=== PATIENT | female | born 1975 | race Caucasian/White ===

== ENCOUNTER 2022-01-20 16:08 | Emergency (ER) | payer OTHER, SELFPAY ==
--- NOTE | ~2022-01-20 | XR_ITS ---
EXAMINATION: XR chest 1V portable DATE: 01/20/2022 18:16 INDICATION: COVID presenting with shortness of breath, fever and hypertension. TECHNIQUE: frontal view of the chest was obtained. COMPARISON: Chest radiograph dated 01/23/19 FINDINGS: The lungs are clear with no focal airspace opacities, pulmonary edema, pleural effusion or pneumothor ax. The cardiomediastinal silhouette is normal. Visualized bones and soft tissues are unremarkable. IMPRESSION: 1. No acute cardiopulmonary disease. Reviewed, dictated and finalized at location A.
[2022-01-20 16:12] VITALS: BP 193/141; PULSE 118; RESP 20; TEMP 37.9; O2SAT 97
[2022-01-20 17:55] LABS: Influenza A QL RT-PCR Negative (Negative); Influenza B QL RT-PCR Negative (Negative); SARS-CoV-2 RNA PCR Positive
--- NOTE | 2022-01-20 18:00 | ECG_ITS ---
Measurements Intervals [place] Rate: 101 P: 56 IL: 146 QRS: 22 QRSD: 75 T: 31 QT: 351 QTc: 456 Interpretive Statements SINUS TACHYCARDIA LEFT ATRIAL ENLARGEMENT DELAYED PRECORDIAL R/S TRANSITION BORDERLINE ECG COMPARED TO ECG 01/23/2019 17:36:57 SINUS TACHYCARDIA NOW PRESENT Electronically Signed On 01-20-2022 20:37:59 CDT by Jono Ramirez D.O.
--- NOTE | 2022-01-20 18:09 | ED.GENADULT ---
HPI - General Adult General Chief complaint: Shortness of Breath/Dyspnea Stated complaint: sob Time Seen by Provider: 01/20/22 17:57 Source: patient Mode of arrival: ambulatory Limitations: no limitations History of Present Illness HPI narrative: Patient is a 46 y/o female who presents to the ED with c/o cough and SOB. Patient reports she began feeling unwell yesterday with cough, fever, muscle aches, headache, fatigue, mild shortness of breath. She denies any chest pain, abdominal pain, nausea, vomiting. She has not taken anything for symptoms. Symptoms persisted today which prompted her presentation. Patient is not vaccinated for COVID or influenza. No recent sick contacts that she is aware of. Related Data Allergies Allergy/AdvReac Type Severity Reaction Status Date / Time No Known Allergies Allergy Unverified 01/23/19 17:34 Review of Systems Review of Systems: CONSTITUTIONAL: Reports fatigue, fever, chills, and sweats. ENT: Reports rhinorrhea, congestion. CARDIOVASCULAR: Denies chest pain. RESPIRATORY: Reports cough and dyspnea. GASTROINTESTINAL: Denies abdominal pain, nausea, vomiting. MUSCULOSKELETAL: Reports myalgias. NEUROLOGIC: Reports headache. All systems reviewed & are unremarkable except as noted in HPI and below PMFSH Past Medical History Medical History ADHD Encounter for insertion of mirena IUD 05/2013 insertion 10/14/14 removal Encounter for insertion of ParaGard IUD 11/11/14 Surgical History Surgical History (Updated 01/20/22 @ 18:12 by Becky Richey PA-C) History of endometrial ablation History of hernia repair Family History Family History (Updated 06/14/21 @ 13:14 by Eunice Forde) Mother Diabetes mellitus Father Diabetes mellitus Grandparent Diabetes mellitus maternal grandmother Breast cancer maternal grandmother Social History Social History (Updated 01/20/22 @ 18:12 by Becky Richey PA-C) Smoking status: Current every day smoker Exam Narrative: GENERAL: Mildly ill appearing, well-nourished, non-toxic, in no acute distress. HEAD: Normocephalic, atraumatic. EYES: PERRL/EOMI, conjunctivae clear bilaterally. NOSE: Normal, no drainage. THROAT: Pharynx clear, no exudate. MMs moist. NECK: Supple. No adenopathy, no masses. RESPIRATORY: Airway patent, respirations nonlabored. No tachypnea. Clear to auscultation bilaterally, no rales, rhonchi, wheezing. CARDIOVASCULAR: Tachycardic with regular rhythm without murmurs, rubs, or gallops. Radial pulses 2+ and equal bilaterally. ABDOMINAL: Soft, nontender, nondistended, no hepatosplenomegaly. Normoactive BS. MUSCULOSKELETAL: Moves all extremities. Strength/ROM intact without gross deformities or TTP. No edema. SKIN: Warm, dry, normal color. No rashes. NEURO: A&O X3. Speech clear. Cranial nerves II-XII grossly intact. Steady gait. No ataxic movements. PSYCHIATRIC: Appropriate mood and affect. Normal interaction. Course Vital Signs Vital signs: Vital Signs Temperature 100.2 F H 01/20/22 16:12 Pulse Rate 118 H 01/20/22 16:12 Respiratory Rate 20 01/20/22 16:12 Blood Pressure 193/141 H 01/20/22 16:12 Pulse Oximetry 97 01/20/22 16:12 Temperature 99.0 F 01/20/22 18:22 Pulse Rate 110 H 01/20/22 18:22 Respiratory Rate 20 01/20/22 18:22 Blood Pressure 150/98 H 01/20/22 18:22 Pulse Oximetry 97 01/20/22 18:22 Oxygen Delivery Room Air 01/20/22 18:34 Medical Decision Making MDM Narrative Medical decision making narrative: Patient presented to ED with report of shortness of breath, cough, fever, muscle aches. Borderline febrile upon arrival, tachycardic. Work-up significant for positive COVID testing, negative influenza. CBC and CMP unremarkable. Chest x-ray without acute findings. EKG without concerning ST changes. D-dimer negative. Patient came out to nurses station prior to my reevaluati
[2022-01-20 18:22] VITALS: BP 150/98; PULSE 110; RESP 20; TEMP 37.2; O2SAT 97
[2022-01-20] MEDS: ACETAMINOPHEN 500 MG TABLET 1000 MG PO (18:24)
[2022-01-20] MEDS: KETOROLAC (*BKC) 60 MG/2 ML VIAL IM (18:24)
[2022-01-20 18:44] LABS: Basophils Percent Auto 0.5 % (0.2-1.2); Eosinophils Absolute Auto 0.1 K/mm3 (0-0.3); Eosinophils Percent Auto 1.1 % (0-4.4); Hematocrit 38.1 % (37.0-47.0); Hemoglobin 12.8 g/dL (12.0-15.0); Immature Granulocyte Absolute 0.07 K/mm3 (0.00-0.031); Immature Granulocyte Percent A 0.8 % (0-0.5); Lymphocytes Absolute Auto 1.14 K/mm3 (0.9-3.2); Lymphocytes Percent Auto 13.1 % (18.3-44.2); Mean Corpuscular HGB Conc 33.6 g/dl (32-36); Mean Corpuscular Hemoglobin 31.8 pg (26-34); Mean Corpuscular Volume 94.5 fl (80-100); Mean Platelet Volume 10.5 fl (7.4-10.4); Monocytes Absolute Auto 0.8 K/mm3 (0.1-0.6); Monocytes Percent Auto 9.4 % (2.6-8.5); Neutrophils Absolute Auto 6.5 K/mm3 (1.3-6.7); Neutrophils Percent Auto 75.1 % (45.5-73.1); Platelet Count Result 247 k/mm3 (150-375); Red Blood Count 4.03 M/mm3 (4.2-5.4); Red Cell Distribution Width 12.7 % (11.5-14.5); White Blood Count 8.7 K/mm3 (4.5-10.0)
[2022-01-20 18:50] LABS: Alanine Aminotransferase 32 U/L (6-35); Albumin Level 4.2 g/dL (3.5-5.1); Alkaline Phosphatase 86 U/L (38-126); Anion Gap 9 mmol/L (8-16); Aspartate Amino Transferase 34 U/L (14-36); Bilirubin,Total 0.3 mg/dL (0.2-1.3); Blood Urea Nitrogen 10 mg/dL (7-17); Calcium 8.1 mg/dL (8.4-10.2); Carbon Dioxide 27 mmol/L (22-30); Chloride 98 mmol/L (98-107); Estimated CRCL calculation 72 ml/min; Estimated Glomerular Filt Rate > 60; Glucose 103 mg/dL (65-110); Potassium 3.8 mmol/L (3.4-5.0); Sodium 134 mmol/L (137-145)
--- NOTE | 2022-01-20 19:05 | PC.NURSE ---
Patient up to nurses station desk stating I need to leave. My is in the care waiting for me and says I need to leave. Patient asked to return to her room and that the provider would be notified. JOHN Pena made aware and at bedside to speak with patient.
[2022-01-20 19:07] LABS: D Dimer 0.38 ug/mL (<0.48)
--- NOTE | 2022-01-20 19:17 | PC.NURSE ---
ED charge nurse notified that patient left AMA. Form completed.
== END 2022-01-20 19:20 | disposition home or self-care (01) ==
LOC: ANHED 19:41
PROVIDERS: Emergency Medicine; Physician Assistant; Emergency Provider Emergency Medicine
DX: U07.1 COVID-19 (principal); R06.02 Shortness of breath; Z28.310 Unvaccinated for COVID-19; F17.200 Nicotine dependence, unspecified, uncomplicated
CPT/HCPCS: 36415; 71045; 80053; 85025; 85380; 87502; 93005; 96372; 99283; A9270; C9803; J1885; U0003; U0005

== ENCOUNTER 2022-07-04 21:39 | Emergency (ER) | payer OTHER, SELFPAY ==
[2022-07-04 21:46] VITALS: BP 201/116; PULSE 129; RESP 20; TEMP 37.3; O2SAT 99
--- NOTE | 2022-07-04 21:49 | ECG_ITS ---
Measurements Intervals [place] Rate: 118 P: 63 IN: 136 QRS: 18 QRSD: 71 T: 39 QT: 314 QTc: 441 Interpretive Statements SINUS TACHYCARDIA POSSIBLE LEFT ATRIAL ENLARGEMENT [-0.1mV P WAVE IN V1/V2] NONSPECIFIC T-WAVE ABNORMALITY ABNORMAL ECG COMPARED TO ECG 01/20/2022 18:23:19 T-WAVE ABNORMALITY NOW PRESENT Electronically Signed On 07-05-2022 13:39:46 ICT BUSINESS DEVELOPMENT MANAGER by Emmanuel Richardson M.D.
[2022-07-04 22:06] LABS: Basophils Absolute Auto 0.1 K/mm3 (0.0-0.1); Basophils Percent Auto 0.4 % (0.2-1.2); Eosinophils Absolute Auto 0.1 K/mm3 (0-0.3); Eosinophils Percent Auto 0.4 % (0-4.4); Hematocrit 40.9 % (37.0-47.0); Hemoglobin 13.7 g/dL (12.0-15.0); Immature Granulocyte Absolute 0.07 K/mm3 (0.00-0.031); Immature Granulocyte Percent A 0.4 % (0-0.5); Lymphocytes Absolute Auto 1.31 K/mm3 (0.9-3.2); Lymphocytes Percent Auto 8.3 % (18.3-44.2); Mean Corpuscular HGB Conc 33.5 g/dl (32-36); Mean Corpuscular Volume 95.6 fl (80-100); Mean Platelet Volume 10.3 fl (7.4-10.4); Monocytes Absolute Auto 0.6 K/mm3 (0.1-0.6); Monocytes Percent Auto 3.7 % (2.6-8.5); Neutrophils Absolute Auto 13.7 K/mm3 (1.3-6.7); Neutrophils Percent Auto 86.8 % (45.5-73.1); Platelet Count Result 263 k/mm3 (150-375); Red Blood Count 4.28 M/mm3 (4.2-5.4); Red Cell Distribution Width 13.3 % (11.5-14.5); White Blood Count 15.8 K/mm3 (4.5-10.0)
[2022-07-04 22:16] LABS: Alanine Aminotransferase 25 U/L (6-35); Albumin Level 4.6 g/dL (3.5-5.1); Alkaline Phosphatase 88 U/L (38-126); Anion Gap 6 mmol/L (8-16); Aspartate Amino Transferase 24 U/L (14-36); Blood Urea Nitrogen 13 mg/dL (7-17); Calcium 8.7 mg/dL (8.4-10.2); Carbon Dioxide 27 mmol/L (22-30); Chloride 103 mmol/L (98-107); Estimated CRCL calculation 64 ml/min; Estimated Glomerular Filt Rate > 60; Glucose 106 mg/dL (65-110); Lipase 37 U/L (23-300); Potassium 3.5 mmol/L (3.4-5.0); Sodium 136 mmol/L (137-145)
--- NOTE | 2022-07-04 22:17 | PC.NURSE ---
1st encounter, pt comes to room 7 from triage, pt has multiple complaints tonight, pt c/o toothache that she is currently on antibiotics for, nausea x3 days, headaches x3 nights, bodyaches, pt states she hasn't been able to eat or drink for about 2.5 days. pt states she went to urgent care in [place] prior to coming here and they sent her here for high blood pressure. pt denies any chest pain or JESSICA, airway patent, breathing even/unlabored, gait steady. pt placed on bedside monitor.
[2022-07-04 22:27] VITALS: BP 186/129; PULSE 125; RESP 26; O2SAT 100
[2022-07-04 22:28] LABS: Troponin I < 0.012 ng/mL (0.000-0.034)
[2022-07-04] MEDS: SODIUM CHLORIDE 0.9% IV 1,000 ML 999 ML IV CONT (23:06)
[2022-07-04 23:33] VITALS: BP 171/104; PULSE 112; RESP 28; O2SAT 99
[2022-07-04 23:46] LABS: Appearance Urine Clear (Clear); Bilirubin Urine Negative (Negative); Blood Urine 2+ (Negative); Color Urine Yellow (Yellow); Glucose Urine UA Negative (Negative); Ketones Urine Negative (Negative); Leukocyte Esterase Ur Negative LEU/UL (Negative); Nitrate Urine Negative (Negative); Protein Urine 1+ mg/dL (Negative); Specific Grav Ur 1.025 (1.001-1.035); Urobilinogen Urine 0.2 mg/dL (<2.0)
[2022-07-04 23:52] LABS: Mucus Urine Few /lpf; Squamous Epithelial Cell Urine Few /hpf (Few); WBC Urine 21-30 /hpf
[2022-07-04 23:54] LABS: Add Urine Microscopic? YES
[2022-07-04 23:55] LABS: Lactic Acid Reflex 0.9 mmol/L (0.7-2.0)
[2022-07-04 23:58] LABS: CRP 5.6 mg/dL (<1.0)
--- NOTE | 2022-07-05 00:11 | ED.GENADULT ---
HPI - General Adult General Chief complaint: Recheck/Abnormal Lab/Rx Stated complaint: body aches, headache, high BP Time Seen by Provider: 07/04/22 22:33 History of Present Illness HPI narrative: Patient is a 47-year-old female who presents the emergency department with chief complaint of hypertension and dental infection. The patient reports that she was seen in urgent care after she had dental pain and was found to be hypertensive. Patient reports that they sent her to the emergency department for evaluation. Patient reports she is normally fairly tachycardic and reports that she takes both Adderall and clonazepam. Related Data Home Medications Medication Instructions Recorded Confirmed clonazepam 1 mg tablet 1 mg PO TID 07/04/22 dextroamphetamine-amphetamine 20 20 mg PO TID 07/04/22 mg tablet (Adderall) Allergies Allergy/AdvReac Type Severity Reaction Status Date / Time No Known Allergies Allergy Verified 07/04/22 21:53 Review of Systems Review of Systems: A 10 system review of systems was completed on the patient and is negative except for what is stated in the HPI. Nursing and ancillary documentation was reviewed. [facility]LY [facility] Past Medical History Medical History ADHD Encounter for IUD insertion 05/14/13 Mirena insertion 11/11/14 Paragard insertion Encounter for IUD removal 10/14/14 Mirena removal Screening for breast cancer Vaginal delivery 04/11/96 05/25/13 Vaginal discharge Surgical History Surgical History History of endometrial ablation History of hernia repair Family History Family History Mother Diabetes mellitus Father Diabetes mellitus Grandparent Diabetes mellitus maternal grandmother Breast cancer maternal grandmother Social History Social History Smoking status: Current every day smoker Alcohol intake: former Substance use: never Living arrangements: other Additional living arrangements comments: child Occupation/Education: unemployed Gender identity (if verbalized by the patient): Female Sexual Orientation (if Verbalized by the Patient): Straight or Heterosexual Exam Narrative: GENERAL: Well-appearing, well-nourished, and in no acute distress. HEAD: Normocephalic, atraumatic. EYES: PERRLA and EOMI. ENT: Nares clear, no rhinorrhea or epistaxis. Mucous membranes moist. Poor dentition multiple dental caries and dental abscess NECK: Supple. CHEST: Clear to auscultation. No respiratory distress. HEART: Regular rate and rhythm. No murmur heard. Normal peripheral pulses. ABDOMEN: Soft, nontender, nondistended, normal active bowel sounds. EXTREMITIES: Normal range of motion. No edema. SKIN: Warm, dry, no rash. NEURO: No focal deficits. Alert and oriented x3. PSYCH: Normal mood and affect. Course Vital Signs Vital signs: Vital Signs Temperature 37.3 C 07/04/22 21:46 Pulse Rate 129 H 07/04/22 21:46 Respiratory Rate 20 07/04/22 21:46 Blood Pressure 201/116 H 07/04/22 21:46 Pulse Oximetry 99 07/04/22 21:46 Oxygen Delivery Room Air 07/04/22 21:46 Temperature 37.3 C 07/04/22 21:46 Pulse Rate 112 H 07/04/22 23:33 Respiratory Rate 28 H 07/04/22 23:33 Blood Pressure 171/104 H 07/04/22 23:33 Pulse Oximetry 99 07/04/22 23:33 Oxygen Delivery Room Air 07/04/22 21:46 Medical Decision Making MDM Narrative Medical decision making narrative: The patient was tachycardic and hypertensive upon initial arrival. The patient's blood pressure came down spontaneously heart rate has come down as well. Urinalysis showed evidence of UTI white blood cell count is mildly elevated at 15.8 CRP is elevated at 5 lactate is normal. The patient is currently on Augmentin pe
[2022-07-05 00:19] LABS: Influenza A QL RT-PCR Negative (Negative); Influenza B QL RT-PCR Negative (Negative); SARS-CoV-2 RNA PCR Negative
[2022-07-05 00:21] LABS: Procalcitonin 0.6 ng/mL
[2022-07-05 00:53] VITALS: BP 149/100; PULSE 112; RESP 18; O2SAT 99
== END 2022-07-05 00:54 | disposition home or self-care (01) ==
PROVIDERS: Emergency Medicine; Emergency Provider Emergency Medicine
DX: I10 Essential (primary) hypertension (principal); K04.7 Periapical abscess without sinus; N39.0 Urinary tract infection, site not specified; Z20.822 Contact with and (suspected) exposure to COVID-19; F90.9 Attention-deficit hyperactivity disorder, unspecified type; F17.200 Nicotine dependence, unspecified, uncomplicated; R00.0 Tachycardia, unspecified; R94.31 Abnormal electrocardiogram [ECG] [EKG]
CPT/HCPCS: 36415; 80053; 81001; 83605; 83690; 84145; 84484; 85025; 86140; 87040; 87086; 87636; 93005; 96361; 96365; 99284; J0131; J7030

== ENCOUNTER 2023-04-27 01:10 | Emergency (ER) | payer OTHER, SELFPAY | END 2023-04-28 02:25 | disposition left against medical advice (07) | PROVIDERS: PCP Family Medicine | DX: Z53.21 Procedure and treatment not carried out due to patient leaving prior to being seen by health care provider (principal) | CPT/HCPCS: 99199 ==

== ENCOUNTER 2023-07-30 00:34 | Emergency (ER) | payer OTHER, SELFPAY ==
[2023-07-30 00:36] VITALS: BP 204/125; PULSE 111; RESP 18; TEMP 36.1; O2SAT 99
--- NOTE | 2023-07-30 00:41 | ECG_ITS ---
Measurements Intervals [place] Rate: 87 P: 23 DE: 134 QRS: 11 QRSD: 67 T: 6 QT: 332 QTc: 401 Interpretive Statements SINUS RHYTHM NORMAL ECG COMPARED TO ECG 07/04/2022 21:53:22 SINUS RHYTHM NOW PRESENT Electronically Signed On 07-30-2023 6:35:20 CDT by Jono Ramirez D.O.
[2023-07-30 00:45] VITALS: PULSE 107
[2023-07-30 00:48] VITALS: BP 189/120; PULSE 100; RESP 18; TEMP 36.4; O2SAT 100
[2023-07-30 00:49] VITALS: O2SAT 100
[2023-07-30 00:59] LABS: Basophils Absolute Auto 0.1 K/mm3 (0.0-0.1); Basophils Percent Auto 0.6 % (0.2-1.2); Eosinophils Absolute Auto 0.3 K/mm3 (0-0.3); Eosinophils Percent Auto 2.4 % (0-4.4); Immature Granulocyte Absolute 0.04 K/mm3 (0.00-0.031); Immature Granulocyte Percent A 0.4 % (0-0.5); Lymphocytes Absolute Auto 2.54 K/mm3 (0.9-3.2); Lymphocytes Percent Auto 23.6 % (18.3-44.2); Mean Corpuscular HGB Conc 33.3 g/dl (32-36); Mean Corpuscular Hemoglobin 31.3 pg (26-34); Mean Platelet Volume 10.1 fl (7.4-10.4); Monocytes Absolute Auto 0.6 K/mm3 (0.1-0.6); Monocytes Percent Auto 5.8 % (2.6-8.5); Neutrophils Absolute Auto 7.2 K/mm3 (1.3-6.7); Neutrophils Percent Auto 67.2 % (45.5-73.1); Platelet Count Result 346 k/mm3 (150-375); Red Blood Count 4.47 M/mm3 (4.2-5.4); Red Cell Distribution Width 12.9 % (11.5-14.5); White Blood Count 10.8 K/mm3 (4.5-10.0)
[2023-07-30 01:09] LABS: Anion Gap 3 mmol/L (8-16); Blood Urea Nitrogen 11 mg/dL (7-17); Calcium 9.3 mg/dL (8.4-10.2); Carbon Dioxide 32 mmol/L (22-30); Chloride 103 mmol/L (98-107); Estimated CRCL calculation 62 ml/min; Estimated Glomerular Filt Rate > 60; Glucose 94 mg/dL (65-110); Potassium 3.8 mmol/L (3.4-5.0); Sodium 138 mmol/L (137-145)
[2023-07-30 01:41] LABS: D Dimer < 0.27 ug/mL (<0.48)
--- NOTE | 2023-07-30 01:44 | ED.GENADULT ---
HPI - General Adult General Chief complaint: Extremity Problem,Nontraumatic Stated complaint: Left leg pain, clot? Time Seen by Provider: 07/30/23 00:57 History of Present Illness HPI narrative: Patient is a 48-year-old female who presents emergency department with chief complaint of left calf pain. The patient reports that for several days she has been having swelling and pain in her left calf reports that doses little more swollen this evening reports is a little tingly sensation in it the patient states that she was concerned that she may have clot in her leg. The patient reports no trauma reports that the pain is worse where she walks Related Data Home Medications Medication Instructions Recorded Confirmed clonazepam 1 mg tablet 1 mg PO TID 07/04/22 06/12/23 Allergies Allergy/AdvReac Type Severity Reaction Status Date / Time No Known Allergies Allergy Verified 06/12/23 14:38 Review of Systems Review of Systems: A 10 system review of systems was completed on the patient and is negative except for what is stated in the HPI. Nursing and ancillary documentation was reviewed. [facility]LY [facility] Past Medical History Medical History ADHD Encounter for IUD insertion 05/14/13 Mirena insertion 11/11/14 Paragard insertion Encounter for IUD removal 10/14/14 Mirena removal Screening for breast cancer Vaginal delivery 04/11/96 05/25/13 Vaginal discharge Surgical History Surgical History History of endometrial ablation History of hernia repair Family History Family History Mother Diabetes mellitus Alcohol abuse Depression Thyroid disease Father Diabetes mellitus Hypertension Grandparent Diabetes mellitus maternal grandmother Breast cancer maternal grandmother Social History Social History Social History: caffeine Smoking status: Current every day smoker Tobacco type: cigarettes Alcohol intake: former Substance use: never Substance use type: does not use Lack of Transportation: No Lack of Food: Never True Current Housing: I Have Housing Concerned About Future Housing: No Difficulty Paying Gas/Electric Bills: No Difficulty Paying for Meds: No Currently Unemployed: Decline to Answer Education: Trade/Vocational Certificate Difficulty w/ Childcare or Family Care: No Living arrangements: with family Additional living arrangements comments: child Occupation/Education: unemployed Gender identity (if verbalized by the patient): Female Sexual Orientation (if Verbalized by the Patient): Straight or Heterosexual Agree to blood products: Yes Exam Narrative: GENERAL: Well-appearing, well-nourished, and in no acute distress. HEAD: Normocephalic, atraumatic. EYES: PERRLA and EOMI. ENT: Nares clear, no rhinorrhea or epistaxis. Mucous membranes moist. NECK: Supple. CHEST: Clear to auscultation. No respiratory distress. HEART: Regular rate and rhythm. No murmur heard. Normal peripheral pulses. ABDOMEN: Soft, nontender, nondistended, normal active bowel sounds. EXTREMITIES: Normal range of motion. Trace edema left lower extremity negative Fuentes test. SKIN: Warm, dry, no rash. NEURO: No focal deficits. Alert and oriented x3. PSYCH: Normal mood and affect. Course Vital Signs Vital signs: Vital Signs Temperature 36.1 C L 07/30/23 00:36 Pulse Rate 111 H 07/30/23 00:36 Respiratory Rate 18 07/30/23 00:36 Blood Pressure 204/125 H 07/30/23 00:36 Pulse Oximetry 99 07/30/23 00:36 Oxygen Delivery Room Air 07/30/23 00:36 Temperature 36.4 C 07/30/23 00:48 Pulse Rate 82 07/30/23 02:57 Respiratory Rate 16 07/30/23 02:57 Blood Pressure 181/111 H 07/30/23 02:57 Pulse Oxime
[2023-07-30 01:52] LABS: Prothrombin Time 13.6 Seconds (11.1-14.7)
[2023-07-30 01:53] LABS: Partial Thromboplastin Time 26.2 Seconds (22.3-36.8)
[2023-07-30 02:57] VITALS: BP 181/111; PULSE 82; RESP 16; O2SAT 98
== END 2023-07-30 03:18 | disposition home or self-care (01) ==
PROVIDERS: Physician Assistant; Emergency Provider Emergency Medicine; PCP Family Medicine
DX: M79.662 Pain in left lower leg (principal); F90.9 Attention-deficit hyperactivity disorder, unspecified type; F17.210 Nicotine dependence, cigarettes, uncomplicated
CPT/HCPCS: 36415; 80048; 85025; 85380; 85610; 85730; 93005; 99284

== ENCOUNTER 2023-08-04 13:44 | Outpatient (CLI) | payer OTHER, SELFPAY ==
--- NOTE | ~2023-08-04 | US_ITS ---
EXAMINATION: US venous doppler [facility] DATE: 08/04/2023 14:16 INDICATION: PAIN/SWELLING;EVAL DVT . TECHNIQUE: Grayscale images without and with compression and Doppler images of the left lower extremi ty veins were obtained. COMPARISON: None FINDINGS: The left common femoral vein, profunda (deep) femoral vein, femoral vein, popliteal vein, peroneal v ein, posterior tibial veins, and greater saphenous vein are patent. IMPRESSION: Patent left lower extremity veins. No evidence of deep venous thrombosis. Reviewed, dictated and finalized at location K.
== END 2023-08-04 13:45 | disposition home or self-care (01) ==
LOC: ANHIMG 13:49
PROVIDERS: PCP Family Medicine; Visit Provider Emergency Medicine
DX: M79.89 Other specified soft tissue disorders (principal)
CPT/HCPCS: 93971

== ENCOUNTER 2023-08-10 11:11 | Outpatient (CLI) | payer OTHER, SELFPAY ==
[2023-08-10 13:32] LABS: Hematocrit 42.1 % (37.0-47.0); Hemoglobin 13.6 g/dL (12.0-15.0); Mean Corpuscular HGB Conc 32.3 g/dl (32-36); Mean Corpuscular Hemoglobin 31.3 pg (26-34); Platelet Count Result 296 k/mm3 (150-375); Red Blood Count 4.34 M/mm3 (4.2-5.4); Red Cell Distribution Width 13.2 % (11.5-14.5); White Blood Count 10.1 K/mm3 (4.5-10.0)
[2023-08-10 13:42] LABS: Alanine Aminotransferase 43 U/L (6-35); Albumin Level 4.2 g/dL (3.5-5.1); Alkaline Phosphatase 96 U/L (38-126); Anion Gap 8 mmol/L (4-12); Aspartate Amino Transferase 102 U/L (14-36); Bilirubin,Total 0.5 mg/dL (0.2-1.3); Blood Urea Nitrogen 20 mg/dL (7-17); Calcium 9.4 mg/dL (8.4-10.2); Carbon Dioxide 28 mmol/L (22-30); Chloride 101 mmol/L (98-107); Cholesterol 162 mg/dL (0-200); Estimated Glomerular Filt Rate 44; Glucose 99 mg/dL (65-110); HDL Direct 38 mg/dL; Potassium 4.1 mmol/L (3.4-5.0); Sodium 137 mmol/L (137-145); Triglycerides 82 mg/dL (<150)
[2023-08-10 13:53] LABS: LDL Cholesterol Direct 98 mg/dL
[2023-08-13 22:00] LABS: Vitamin D 1,25 (OH)2 Total 21 pg/mL (18-72); Vitamin D2 1,25 (OH)2 <8 pg/mL; Vitamin D3 1,25 (OH)2 21 pg/mL
== END 2023-08-10 11:12 | disposition home or self-care (01) ==
LOC: ANHGOSHLAB 11:12
PROVIDERS: PCP Family Medicine; Visit Provider Family Medicine
DX: E55.9 Vitamin D deficiency, unspecified (principal); I10 Essential (primary) hypertension; F41.9 Anxiety disorder, unspecified; Z79.899 Other long term (current) drug therapy
CPT/HCPCS: 36415; 80053; 80061; 82652; 84443; 85027

== ENCOUNTER 2023-09-05 10:54 | Outpatient (CLI) | payer OTHER, SELFPAY ==
[2023-09-05 20:09] LABS: Alanine Aminotransferase 22 U/L (6-35); Albumin Level 4.2 g/dL (3.5-5.1); Alkaline Phosphatase 80 U/L (38-126); Anion Gap 3 mmol/L (4-12); Aspartate Amino Transferase 27 U/L (14-36); Bilirubin,Total 0.4 mg/dL (0.2-1.3); Blood Urea Nitrogen 15 mg/dL (7-17); Carbon Dioxide 28 mmol/L (22-30); Chloride 104 mmol/L (98-107); Estimated Glomerular Filt Rate > 60; Glucose 97 mg/dL (65-110); Potassium 3.9 mmol/L (3.4-5.0); Sodium 135 mmol/L (137-145)
[2023-09-05 20:45] LABS: Hemoglobin A1C 5.4 % (<5.7)
== END 2023-09-05 10:55 | disposition home or self-care (01) ==
LOC: ANHGOSHLAB 10:56
PROVIDERS: PCP Family Medicine; Visit Provider Family Medicine
DX: R74.8 Abnormal levels of other serum enzymes (principal); R79.89 Other specified abnormal findings of blood chemistry; R73.09 Other abnormal glucose
CPT/HCPCS: 36415; 80053; 83036

== ENCOUNTER 2024-06-23 20:50 | Emergency (ER) | payer OTHER, SELFPAY ==
--- OUTSIDE RECORDS SUMMARY | 2024-06-23 20:52 | XMS_ITS | CONTINUITY OF CARE DOCUMENT ---
Author Name chuy vera Address Unknown Organization [facility] Address [address] [place] [address] [address] [place] [address] Phone [phone] Care Team Providers Care Tree Feller Operator Name Role Phone Raj PAREDES, Po Unavailable INSURANCE PROVIDERS Payer name Policy type / Coverage type Crane red republican ID [facility] Medicaid [id number]
--- OUTSIDE RECORDS SUMMARY | 2024-06-23 20:52 | XMS_ITS | Continuity of Care Document ---
Author Organization [facility] Address [address] [place] [address] Phone Care Team Providers Care Fish Egg Packer Name Role Phone Toro OD, Dwayne Unavailable Unavailable Procedures Procedure Date Eye Exam & Treatment Refraction Eye Exam & Treatment Advance Directives Directive Yes / No Effective Date File Name No Information Encounters Encounter Description Practice Location Reason(s) For Visit Diagnoses Date Provider Providers Copied on Encounter [facility], [address] [place] [address] [address], [place], [place], [id number], tel:[phone] [facility] [place] No Information 1-200 9 Toro OD Dwayne. [address] [facility] [place] , [address], [place], [place], [facility], . tel:[phone] [facility], [address] [place] [address] [address], [place], [place], [id number], tel:[phone] SEC [facility] No Information 5-200 8 Toro OD Dwayne. [address] [facility] , [address], [place], [address], [place]. tel:[phone] Family History Family Member Type Diagnosis Age At Onset No Information Payers Payer name Insurance type Covered alliance party ID Authoriza tion(s) Medicaid [facility] [id number] Social History Type Description Quantity Date Captured Comments Sex Female Smoking Status No Information Chief Complaint And Reason For Visit No Information Reason For Referral Reason For Referral No Information History Of Present Illness Encounter Date Complaint History Of Prese nt Illness No Information Functional Status Date Functional Assessmen t No Information Instructions Date Instruction Additional Infor mation No Information Assessments Type Assessment Date No Information Patient Care Teams Name Effective Dates (start - stop) Status Members No Information
[2024-06-23 21:17] VITALS: BP 156/108; PULSE 110; RESP 18; TEMP 37; O2SAT 97
--- NOTE | 2024-06-23 21:55 | PC.NURSE ---
Pt walked to triage desk and reported to this RN that she would like to leave due to wait times. Pt stated she will come back tomorrow if she feels worse. Ambulatory with steady gait in NAD. Denies wanting to see a provider.
--- OUTSIDE RECORDS SUMMARY | 2024-06-23 22:00 | XMS_ITS | Continuity of Care Document ---
Author Organization [facility] Address [address] [facility] [address] [place] [address] Phone Care Team Providers Care Security Operations Manager Name Role Phone Toro OD, Dwayne Unavailable Unavailable Procedures Procedure Date Eye Exam & Treatment Refraction Eye Exam & Treatment Advance Directives Directive Yes / No Effective Date File Name No Information Encounters Encounter Description Practice Location Reason(s) For Visit Diagnoses Date Provider Providers Copied on Encounter [facility], [address] [place] [address] [address], [place], [place], [id number], tel:[phone] [facility] [place] No Information 1-200 9 Toro OD Dwayne. [address] [facility] [place] , [address], [place], [place], [facility], . tel:[phone] [facility], [address] [place] [address] [address], [place], [place], [id number], tel:[phone] SEC [facility] No Information 5-200 8 Toro OD Dwayne. [address] [facility] , [address], [place], [address], [place]. tel:[phone] Family History Family Member Type Diagnosis Age At Onset No Information Payers Payer name Insurance type Covered libertarian ID Authoriza tion(s) Medicaid [facility] [id number] Social History Type Description Quantity Date Captured [...]
--- OUTSIDE RECORDS SUMMARY | 2024-06-23 22:00 | XMS_ITS | CONTINUITY OF CARE DOCUMENT ---
Author Name chuy vera Address Unknown Organization [facility] Address [address] [place] [address] [address] [place] [address] Phone [phone] Care Team Providers Care Wet Mixer Name Role Phone Raj PAREDES, Po Unavailable [phone] INSURANCE PROVIDERS Payer name Policy type / Coverage type [place] red constitution party ID [facility] [employer] Medicaid [id number]
== END 2024-06-23 22:07 | disposition left against medical advice (07) ==
LOC: ANHED 21:59
PROVIDERS: PCP Family Medicine
DX: R06.02 Shortness of breath (principal)
CPT/HCPCS: 99199

== ENCOUNTER 2024-06-25 16:34 | Emergency (ER) | payer OTHER, SELFPAY ==
--- NOTE | ~2024-06-25 | XR_ITS ---
CHEST RADIOGRAPH, PA AND LATERAL CLINICAL HISTORY: cough . COMPARISON: 01/20/2022 TECHNIQUE: PA and lateral views of the chest. FINDINGS The cardiomediastinal silhouette is unremarkable. A retrocardiac density is identified projecting over the right lower lobe with air bronchograms possi hayden related to positioning for which a early infiltrate is suspected. The remainder of the lungs are clear. IMPRESSION: Possible early infiltrate within the right lower lobe, as detailed above. Reviewed, dictated and finalized at location A. STRIAL GAS FITTER HELPER
--- NOTE | 2024-06-25 16:47 | ED_ITS ---
HPI - URI/Sore Throat General Chief Complaint: Upper Respiratory Infection Stated Complaint: Flu Symptoms Source: patient Mode of arrival: ambulatory Limitations: no limitations History of Present Illness HPI Narrative: 49 y/o female presented for c/o can't breathe. States she has had cough and sob for over one week, testing positive for H1N1 at ER 06/19/24. Pt completed tamiflu without significant improvement in symptoms. Continues to report body aches, wheezing, and pain to the right lung. Smokes 1/2ppd. States her O2 level at home has been 86%. Denies n/v/d/f/c. Taking occasional Tylenol. Related Data Home Medications ?Medication ?Instructions ?Recorded ?Confirmed ?Last Taken ?Type clonazepam 1 mg tablet 1 mg PO TID 07/04/22 10/30/23 Unknown History Allergies Allergy/AdvReac Type Severity Reaction Status Date / Time No Known Allergies Allergy Verified 06/25/24 16:55 Review of Systems Review of Systems: per HPI All systems reviewed & are unremarkable except as noted in HPI and below PMFSH Past Medical History Medical History ADHD Encounter for IUD insertion 05/14/13 Mirena insertion 11/11/14 Paragard insertion Encounter for IUD removal 10/14/14 Mirena removal Screening for breast cancer Vaginal delivery 04/11/96 05/25/13 Vaginal discharge Surgical History Surgical History History of endometrial ablation History of hernia repair Family History Family History Mother Diabetes mellitus Alcohol abuse Depression Thyroid disease Father Diabetes mellitus Hypertension Grandparent Diabetes mellitus maternal grandmother Breast cancer maternal grandmother Social History Social History Social History: caffeine Smoking status: Current every day smoker Tobacco type: cigarettes Alcohol intake: former Substance use: never Substance use type: does not use Lack of Transportation: No Lack of Food: Never True Current Housing: I Have Housing Concerned About Future Housing: No Difficulty Paying Gas/Electric Bills: No Difficulty Paying for Meds: No Currently Unemployed: Decline to Answer Education: Trade/Vocational Certificate Difficulty w/ Childcare or Family Care: No Living arrangements: with family Additional living arrangements comments: child Occupation/Education: unemployed Gender identity (if verbalized by the patient): Female Sexual Orientation (if Verbalized by the Patient): Straight or Heterosexual Agree to blood products: Yes Comments At time of signature, I have reviewed and agree with nursing past medical, surgical, social and family history unless otherwise noted. Please see nursing chart for further information. There is no relevant family history pertinent to the presenting complaint Exam Narrative: GENERAL: ill-appearing, nontoxic in no acute distress. EYES: EOMI. No redness or drainage. Conjunctivae normal. ENT: Mucous membranes pink and moist. No rhinorrhea. TMs normal bilaterally. Throat normal. Uvula midline. NECK: Normal AROM. Supple. CHEST: No respiratory distress. Coarse and Wheezing to all albert; diminished right base. Speaks full sentences HEART: Regular rate and rhythm. No murmur appreciated. ABDOMEN: Soft, nontender, nondistended, normal active bowel sounds. SKIN: Warm, dry, no rash. Capillary refill normal. Normal skin turgor. NEURO: Alert and oriented x3. Gait steady. PSYCH: Flat affect. Course Course Emergency Course: Patient is aware of diagnosis, understands and agrees to treatment plan. Anticipatory guidance given. Patient agrees to follow-up as directed and is aware of reasons to seek care at the emergency department. Portions of this record may have been created with voice recognition software Level of Care: Express Care Visit Vital Signs Vital signs: Vital Signs Temperature 99 F 06/25/24 16:49 Pulse Rate 86 06/25/24 16:49 Respiratory Rate 16 06/25/24 16:49 Blood Pressure 98/78 L 06/25/24 16:49 Pulse Oximetry 94 06/25/24 16:49 Temperature 99 F 06/25/24 16:49 Pulse Rate 86 06/25/24 16:49 Respiratory Rate 16 06/25/24 16:49 Blood Pressure 98/78 L 06/25/24 16:49 Pulse Oximetry 94 06/25/24 16:49 MDM - URI/Sore Throat MDM Narrative Medical decision making narrative: Discussed physical exam findings, neg flu and covid. Reviewed CXR with pt; RLL pneumonia. Pt declined nebulizer treatment in clinic. Reviewed Rx's. Offered ER transfer, pt would like to start abx and steroid and will go to ER if sx worsen. Advised close f/u with pcp. Advised supportive measures and signs/symptoms to go to the ER. Pt is appropriate for outpt treatment and f/u. Differential Diagnosis Differential diagnosis: Likely other (Angioedema, perforation, asthma, pneumonia, PE, tension pneumothorax, cardiac tamponade VA, pericarditis, pleural effusion, CHF, bronchitis, cardiac arrhythmia) Lab Data Labs: Lab Results 06/25/24 Range/Units 17:26 POC Influenza A Ag Negative (Negative) POC Influenza B Ag Negative (Negative) POC SARS CoV-2 Ag Negative (Negative) Imaging Data Radiologist's impression: Patient: Lakshmi Lai : 1975 MR#: [id number] Age: 49 Acct:[id number] Loc: [facility] ADM Date: 06/25/24Attending Dr: Ordering Physician: Laura Harmon APRN Date of Service: 06/25/24 Procedure(s): XR chest 2V Accession Number(s): [id number] cc: Laura Harmon APRN; Wilma Begum DO~ CHEST RADIOGRAPH, PA AND LATERAL CLINICAL HISTORY: cough . COMPARISON: 01/20/2022 TECHNIQUE: PA and lateral views of the chest. FINDINGS The cardiomediastinal silhouette is unremarkable. A retrocardiac density is identified projecting over the right lower lobe with air bronchograms possibly related to positioning for which a early infiltrate is suspected. The remainder of the lungs are clear. IMPRESSION: Possible early infiltrate within the right lower lobe, as detailed above. Discharge Plan Discharge Clinical Impression: Pneumonia Qualifiers: Pneumonia type: due to unspecified organism Laterality: right Lung location: lower lobe of lung Qualified Code(s): J18.9 - Pneumonia, unspecified organism Patient Disposition: Home, Self-Care Condition: Stable Instructions: Antibiotic Form, Pneumonia (ED) Additional Instructions: Pneumonia is a lung infection that can cause a fever, cough, and trouble breathing. How it spreads: When someone with bacterial pneumonia coughs, sneezes, or talks, they release respiratory droplets into the air that can be inhaled by others.?You can also get pneumonia by touching a contaminated surface or object and then touching your mouth or nose. You're generally contagious for around 48 hours after starting antibiotics and your fever goes away.? To prevent the spread of pneumonia, you can:? ? Get vaccinated? ? Wash your hands often with soap and water for 20 seconds? ? Cover your mouth with a tissue when you cough or sneeze? ? Avoid people who are already sick with pneumonia? ? Stay home when you have pneumonia Take antibiotics as directed until complete. eat small frequent meals. Get lots of rest and drink fluids. Alternate Tylenol and ibuprofen for pain/fever Rkrh-opo-djsgqtz cough medication can cause drowsiness, take according to package directions If you have nasal congestion, you can take Zyrtec, Claritin along with Flonase spray Call your Primary Care Doctor and make a follow-up appointment tomorrow Go to the ER for worsening symptoms or concerns Patient Language: Divehi Prescriptions: New prednisone 20 mg tablet 20 mg PO DAILY Qty: 18 0RF Rx Instructions: take 3 tablets daily for 3 days, then 2 tablets daily for 3 days then 1 tablet daily for 3 days azithromycin [Zithromax Z-Dale] 250 mg tablet See Rx Instructions .ROUTE .COMPLEX Qty: 6 0RF Rx Instructions: For 250 mg dose pack: take 500 mg today (day 1), then 250 mg for 4 days (days 2-5) fluticasone propionate 220 mcg/actuation HFA aerosol inhaler 2 puff inhalation Q12H Qty: 12 0RF Rx Instructions: administer with spacer No Action clonazepam 1 mg tablet 1 mg PO TID amoxicillin-pot clavulanate 875-125 mg tablet 1 tablet PO BID Qty: 20 0RF naproxen 500 mg tablet 500 mg PO BID PRN (Reason: pain) Qty: 60 0RF hydrochlorothiazide 12.5 mg tablet See Rx Instructions .ROUTE .COMPLEX Qty: 90 0RF Dose Instruction: TAKE 1 TABLET BY MOUTH DAILY Rx Instructions: TAKE 1 TABLET BY MOUTH DAILY labetalol 200 mg tablet 200 mg PO Q12H Qty: 180 1RF levofloxacin 750 mg tablet 750 mg PO DAILY Qty: 14 0RF Follow-up/Referrals: Wilma Begum DO [Primary Care Provider] - Time of Disposition: 17:41
[2024-06-25 16:49] VITALS: BP 98/78; PULSE 86; RESP 16; TEMP 37.2; O2SAT 94
[2024-06-25 17:29] LABS: EDCOVIDSCREEN Negative (Negative); EDINFLUASCREEN Negative (Negative); EDINFLUBSCREEN Negative (Negative)
== END 2024-06-25 17:44 | disposition home or self-care (01) ==
PROVIDERS: Emergency Provider Nurse Practitioner Family; PCP Family Medicine
DX: J18.9 Pneumonia, unspecified organism (principal); Z20.822 Contact with and (suspected) exposure to COVID-19; F17.210 Nicotine dependence, cigarettes, uncomplicated
CPT/HCPCS: 71046; 87426; 87804; 99213; G0463

== ENCOUNTER 2024-10-13 13:40 | Outpatient (CLI) | payer OTHER, SELFPAY ==
--- NOTE | ~2024-10-13 | US_ITS ---
EXAMINATION: US pelvic complete w TV INDICATION: Check IUD Comparison:Ultrasound dated 07/04/2018 TECHNIQUE: Multiple transabdominal and endovaginal sonographic images of the pelvis performed. FINDINGS: The uterus measures 9.3 x 5.2 x 5.9 cm. There is a hypoechoic mass in the right uterus leona uring 6.3 x 5 x 4.6 cm, compatible with uterine fibroid. IUD is present in the endometrium. The endom etrial complex measures 7 mm. The right ovary measures 3.2 x 2.3 x 3 cm and the left ovary is not visualized. There is a fluid-fill ed tubular structure of the left adnexa, possibly hydrosalpinx. There is no free fluid in the pelvis. There are no abnormal masses seen on either side. IMPRESSION: 1. Right uterine fibroid measuring 6.3 cm maximum dimension. 2: IUD in expected position within the endometrium. 3: Possible left hydrosalpinx. Reviewed, dictated and finalized at location A.
--- OUTSIDE RECORDS SUMMARY | 2024-10-13 13:58 | XMS_ITS | CONTINUITY OF CARE DOCUMENT ---
Author Name chuy vera Address Unknown Organization [facility] Address [id number] [place] [address] [address] [place] [address] Phone [phone] Care Team Providers Care Production Drilling Machine Operator Name Role Phone Raj PAREDES, Po Unavailable INSURANCE PROVIDERS Payer name Policy type / Coverage type [place] red republican ID [employer] Medicaid [id number]
--- OUTSIDE RECORDS SUMMARY | 2024-10-13 13:58 | XMS_ITS | Continuity of Care Document ---
Author Organization [facility] Address [address] [place] [address] Phone Care Team Providers Care Barrel Maker Name Role Phone Toro OD, Dwayne Unavailable Unavailable Procedures Procedure Date Eye Exam & Treatment Refraction Eye Exam & Treatment Advance Directives Directive Yes / No Effective Date File Name No Information Encounters Encounter Description Practice Location Reason(s) For Visit Diagnoses Date Provider Providers Copied on Encounter [facility], [address] [place] [address] [address], [place], [place], [id number], tel:[phone] [facility] [place] No Information 1-200 9 Toro OD Dwayne. [address] [place] , [address], [place], [place], [facility], . tel:[phone] [facility], [address] [place] [address] [address], [place], [place], [id number], tel:[phone] [facility] No Information 5-200 8 Toro OD Dwayne. [address] , [address], [place], [address], [place]. tel:[phone] Family History Family Member Type Diagnosis Age At Onset No Information Payers Payer name Insurance type Covered republican ID Authoriza tion(s) Medicaid [facility] [id number] Social History Type Description Quantity Date Captured [...]
== END 2024-10-13 13:41 | disposition home or self-care (01) ==
PROVIDERS: PCP Family Medicine; Visit Provider Obstetrics & Gynecology
DX: N93.9 Abnormal uterine and vaginal bleeding, unspecified (principal); D25.9 Leiomyoma of uterus, unspecified; Z97.5 Presence of (intrauterine) contraceptive device
CPT/HCPCS: 76830; 76856

== ENCOUNTER 2024-11-26 11:26 | Outpatient (CLI) | payer OTHER, SELFPAY ==
--- NOTE | 2024-11-26 11:48 | ECG_ITS ---
Test Date: 2024-11-26 12:03:39 Measurements Intervals [place] Rate: 110 P: 52 AR: 124 QRS: 8 QRSD: 68 T: 9 QT: 330 QTc: 448 Interpretive Statements SINUS TACHYCARDIA POSSIBLE ANTERIOR MYOCARDIAL INFARCTION , age indeterminate Electronically Signed On 11-26-2024 23:25:54 CDT by Lucas Kumar D.O
[2024-11-26 12:32] LABS: Hematocrit 43.2 % (37.0-47.0); Hemoglobin 14.2 g/dL (12.0-15.0); Mean Corpuscular HGB Conc 32.9 g/dl (32-36); Mean Corpuscular Hemoglobin 31.3 pg (26-34); Mean Corpuscular Volume 95.2 fl (80-100); Platelet Count Result 304 k/mm3 (150-375); Red Blood Count 4.54 M/mm3 (4.2-5.4); White Blood Count 12.1 K/mm3 (4.5-10.0)
[2024-11-26 12:51] LABS: Anion Gap 7 mmol/L (4-12); Blood Urea Nitrogen 15 mg/dL (7-17); Calcium 9.3 mg/dL (8.4-10.2); Carbon Dioxide 29 mmol/L (22-30); Chloride 101 mmol/L (98-107); Estimated Glomerular Filt Rate > 60; Glucose 88 mg/dL (65-110); Potassium 3.8 mmol/L (3.4-5.0); Sodium 137 mmol/L (137-145)
== END 2024-11-26 11:27 | disposition home or self-care (01) ==
LOC: ANHSURGERY 11:32
PROVIDERS: Anesthesiology; PCP Family Medicine; Visit Provider Obstetrics & Gynecology
DX: Z01.818 Encounter for other preprocedural examination (principal); I10 Essential (primary) hypertension; Z79.899 Other long term (current) drug therapy
CPT/HCPCS: 36415; 80048; 85027; 93005

== ENCOUNTER 2024-12-11 01:18 | Day surgery (SDC) | payer OTHER, SELFPAY ==
[2024-11-21 15:03] VITALS: BMI 31.2
--- NOTE | 2024-11-21 15:04 | PC.NURSE ---
Report to the Outpatient Waiting Room, entrance under the green pavilion located off [facility], at time 0615_ on date _11/27/24_. Planned Procedure Time: _0815.? Time changes happen often and if your time is changed the preop area will call you the afternoon before. - You and your visitor will be asked to self-screen and do not enter if you have any COVID symptoms. Please call surgeon if you need to reschedule. - A mask is optional within the hospital at this time. Patients may have clear liquids (water, carbonated beverages, clear teas, apple juice) until 3 hours prior to surgery with a maximum of 20 ounces. - No food from midnight until time of surgery and no smoking, or chewing tobacco (or any form of nicotine). No chewing gum, candy or mints. - Infants may have breast milk until 4 hours before surgery, formula 6 hours prior to surgery. - Children will be allowed to drink immediately following surgery.? If applicable, please bring a bottle or sippy cup to assist with drinking. Juice, water, soda, and popsicles are readily available.? For infants on formula, please bring formula the day of surgery.? Pacifiers are allowed. Take only the following medications with a SIP of water on the morning of surgery: CLONAZEPAM, ADDERALL DO NOT STOP ANY OF YOUR OTHER PRESCRIPTION MEDICATIONS PRIOR TO SURGERY EXCEPT THE FOLLOWING Hold all vitamins and supplements for 3 days per anesthesiologist. Medications to discontinue per physician Date to take last dose Please no make-up, nail mohawk, hairspray, perfume, deodorant, or body powder the day of surgery.? No jewelry (including any body piercings) or valuables the day of surgery, leave them at home.? Please take a shower or bath the night before, or the morning of, surgery with an antibacterial soap.? Wear comfortable, loose fitting clothing.? Children are encouraged to wear pajamas. - Jewelry must be removed prior to entering the operating room.? Rings and piercings that are not removed may be cut off. - The hospital will not accept responsibility for valuables.? - Please leave all valuables, including medications, at home the day of surgery. If you are going home after surgery, a licensed clark driver must drive you home.? - NO public transportation without another adult if you receive anesthesia. - We recommend that an adult stay with you for 24 hours following discharge. - We also recommend that you do not drive, make important decision, drink alcoholic beverages, or take any drugs that were not prescribed by your health care provider for at least 24 hours after your discharge time. For Pediatric surgeries, we recommend two adults accompany the child home. Follow any additional instructions given to you from your surgeon. Telephone instructions given to __PATIENT_and asked if any additional questions and then verbalized understanding. Patient advised to call surgeon office or pre surgery nurse liaison [phone] if any additional questions.
--- NOTE | 2024-11-25 14:59 | PM.IMHP ---
H&P: HPI History of Present Illness Date/Time: 11/25/24 14:59 49-year-old female 2 para 2001 presents for bilateral salpingectomy as well as removal of IUD fragment. Patient had a ParaGard in place which she had for years and it , upon removal in office 1 of the wings of the IUD was not removed. Presents there for today for hysteroscopic removal as well as bilateral salpingectomy. Patient is aware of permanence failure rate increased of ectopic and regret regarding the salpingectomy and strongly desires to proceed. Prior ultrasound did show question of left hydrosalpinx as well as uterine fibroid. Chief Complaint: Undesired fertility Review of Systems Review of Systems: All systems reviewed & are unremarkable except as noted in HPI and below PMFSH Past Medical History Medical History Remove/insert IUD Encounter for screening examination for sexually transmitted disease Screening mammogram, encounter for Vaginal discharge Screening for breast cancer Vaginal delivery 04/11/96 05/25/13 Encounter for IUD removal 10/14/14 Mirena removal Encounter for IUD insertion 05/14/13 Mirena insertion 11/11/14 Paragard insertion ADHD Surgical History Surgical History History of hernia repair History of endometrial ablation Family History Family History Mother Diabetes mellitus Alcohol abuse Depression Thyroid disease Father Diabetes mellitus Hypertension Grandparent Diabetes mellitus maternal grandmother Breast cancer maternal grandmother Social History Social History Social History: caffeine Smoking packs per day: 1 Smoking cigarettes per day: 20.0 Years smoked: 26 Smoking pack-years: 26.00 Smoking status: Current every day smoker Tobacco type: cigarettes Second hand tobacco smoke exposure: No Alcohol intake: never Substance use: never Substance use type: does not use Do You Feel Safe in your Home?: Yes Lack of Transportation: No Lack of Food: Never True Current Housing: I Have Housing Concerned About Future Housing: No Difficulty Paying Gas/Electric Bills: No Difficulty Paying for Meds: No Currently Unemployed: Decline to Answer Education: Trade/Vocational Certificate Difficulty w/ Childcare or Family Care: No Living arrangements: with family Additional living arrangements comments: child Occupation/Education: unemployed Gender identity (if verbalized by the patient): Female Sexual Orientation (if Verbalized by the Patient): Straight or Heterosexual Agree to blood products: Yes Meds Home Medications and Allergies Home Medications ?Medication ?Instructions ?Recorded ?Confirmed ?Type clonazepam 1 mg tablet 1 mg PO TID 07/04/22 11/21/24 History dextroamphetamine-amphetamine 20 20 mg PO DAILY 08/27/24 11/21/24 History mg tablet (Adderall) hydrochlorothiazide 12.5 mg tablet See Rx Instructions .Route 08/27/24 11/21/24 Rx .COMPLEX #90 tabs Allergies Allergy/AdvReac Type Severity Reaction Status Date / Time No Known Allergies Allergy Verified 11/21/24 14:53 Exam Const: General: cooperative and healthy appearing Resp: Effort & Inspection: normal respiratory effort Auscultation: clear to auscultation bilaterally Cardio: Rate: regular rate Rhythm: regular rhythm GI: Inspection: normal to inspection Auscultation: normal bowel sounds : External Female Exam: normal external appearance Speculum Exam - Vagina: normal appearance of the vagina Speculum Exam - Cervix: normal appearance of the cervix Bimanual exam- vagina & uterus: enlarged ( 8-10 week size) Bimanual Exam- Adnexa, other: normal adnexae Assessment and Plan Assessment and plan (1) Encounter for female sterilization procedure: Code(s): Z30.2 - Encounter for sterilization Status: Acute (2) Retained intrauterine contraceptive device (IUD): Code(s): T83.39XA - Other mechanical complication of intrauterine contraceptive device, initial encounter Status: Acute (3) Uterine fibroid: Code(s): D25.9 - Leiomyoma of uterus, unspecified Status: Acute Plan 1. Hysteroscopy with removal of portion of IUD that has been retained 2. Laparoscopic evaluation with bilateral salpingectomy
--- OUTSIDE RECORDS SUMMARY | 2024-11-27 02:12 | XMS_ITS | Continuity of Care Document ---
Author Organization [facility] Address [address] [place] [address] Phone Care Team Providers Care It Portfolio Manager Name Role Phone Toro OD, Dwayne Unavailable Unavailable Procedures Procedure Date Eye Exam & Treatment Refraction Eye Exam & Treatment Advance Directives Directive Yes / No Effective Date File Name No Information Encounters Encounter Description Practice Location Reason(s) For Visit Diagnoses Date Provider Providers Copied on Encounter [facility], [address] [place] [address] [address], [place], [place], [id number], tel:[phone] [facility] [place] No Information 1-200 9 Toro OD Dwayne. [address] [facility] [address] [facility] [place] , [address], [place], [place], [facility], . tel:[phone] [facility], [address] [place] [address] [address], [place], [place], [id number], tel:[phone] SEC [facility] No Information 5-200 8 Toro OD Dwayne. [address] [facility] , [address], [place], [address], [place]. tel:[phone] Family History Family Member Type Diagnosis Age At Onset No Information Payers Payer name Insurance type Covered green party ID Authoriza tion(s) Medicaid [facility] [id number] Social History Type Description Quantity Date Captured [...]
--- NOTE | 2024-11-27 06:43 | SUR.PREOP ---
PT HAS NOT ARRIVED, MESSAGE LEFT FOR PT AND PT
--- NOTE | 2024-12-03 08:31 | PC.NURSE ---
Report to the Outpatient Waiting Room, entrance under the green pavilion located off [facility], at time _0645 on date __12/11/24 . Planned Procedure Time: _0845 .? Time changes happen often and if your time is changed the preop area will call you the afternoon before. - You and your visitor will be asked to self-screen and do not enter if you have any COVID symptoms. Please call surgeon if you need to reschedule. - A mask is optional within the hospital at this time. Patients may have clear liquids (water, carbonated beverages, clear teas, apple juice) until 3 hours prior to surgery with a maximum of 20 ounces. - No food from midnight until time of surgery and no smoking, or chewing tobacco (or any form of nicotine). No chewing gum, candy or mints. - Infants may have breast milk until 4 hours before surgery, infant formula 6 hours prior to surgery. - Children will be allowed to drink immediately following surgery.? If applicable, please bring a bottle or sippy cup to assist with drinking. Juice, water, soda, and popsicles are readily available.? For infants on formula, please bring formula the day of surgery.? Pacifiers are allowed. Take only the following medications with a SIP of water on the morning of surgery: _Clonazepam, Adderall DO NOT STOP ANY OF YOUR OTHER PRESCRIPTION MEDICATIONS PRIOR TO SURGERY EXCEPT THE FOLLOWING Hold all vitamins and supplements for 3 days per anesthesiologist. Medications to discontinue per physician ___N/A Date to take last dose__N/A Please no make-up, nail estonian, hairspray, perfume, deodorant, or body powder the day of surgery.? No jewelry (including any body piercings) or valuables the day of surgery, leave them at home.? Please take a shower or bath the night before, or the morning of, surgery with an antibacterial soap.? Wear comfortable, loose fitting clothing.? Children are encouraged to wear pajamas. - Jewelry must be removed prior to entering the operating room.? Rings and piercings that are not removed may be cut off. - The hospital will not accept responsibility for valuables.? - Please leave all valuables, including medications, at home the day of surgery. If you are going home after surgery, a licensed driver/merchandiser must drive you home.? - NO public transportation without another adult if you receive anesthesia. - We recommend that an adult stay with you for 24 hours following discharge. - We also recommend that you do not drive, make important decision, drink alcoholic beverages, or take any drugs that were not prescribed by your health care provider for at least 24 hours after your discharge time. For Pediatric surgeries, we recommend two adults accompany the child home. Follow any additional instructions given to you from your surgeon. Telephone instructions given to __Scully and asked if any additional questions and then verbalized understanding. Patient advised to call surgeon office or pre surgery nurse liaison [phone] if any additional questions.
--- NOTE | 2024-12-03 08:33 | PC.NURSE ---
Patient was rescheduled from a previous date on 11/27/24. Patient states her health history has not changed. Pre op instructions and medications were reviewed with the patient.
[2024-12-11] VITALS (8 sets, daily range): BP systolic 143–179; BP diastolic 88–124; PULSE 85–106; RESP 16–20; TEMP 36.4–37.1; O2SAT 94–100
--- OUTSIDE RECORDS SUMMARY | 2024-12-11 01:23 | XMS_ITS | Continuity of Care Document ---
Author Organization [facility] Address [address] [place] [address] Phone Care Team Providers Care Secondary Social Studies Teacher Name Role Phone Toro OD, Dwayne Unavailable Unavailable Procedures Procedure Date Eye Exam & Treatment Refraction Eye Exam & Treatment Advance Directives Directive Yes / No Effective Date File Name No Information Encounters Encounter Description Practice Location Reason(s) For Visit Diagnoses Date Provider Providers Copied on Encounter [facility], [address] [place] [address] [address], [place], [place], [id number], tel:[phone] [facility] No Information 1-200 9 Toro OD Dwayne. [address] [facility] , [address], [place], [place], [facility], . tel:[phone] [facility], [address] [place] [address] [address], [place], [place], [id number], tel:[phone] [facility] No Information 5-200 8 Toro OD Dwayne. [address] [facility] [address] , [address], [place], [address], [place]. tel:[phone] Family History Family Member Type Diagnosis Age At Onset No Information Payers Payer name Insurance type Covered alliance party ID Authoriza tion(s) Medicaid [facility] [id number] Social History Type Description Quantity Date Captured [...]
[2024-12-11] MEDS: ACETAMINOPHEN 500 MG TABLET 1000 MG PO (07:10)
[2024-12-11] MEDS: LACTATED RINGERS 1,000 ML 30 ML IV CONT ×2 (07:10→09:38)
[2024-12-11] MEDS: KETOROLAC 15 MG/ML VIAL (*BKC) IV PUSH (07:10)
--- NOTE | 2024-12-11 07:20 | WPDHPUPDATE1 ---
History and Physical Update Update Date/Time: 12/11/24 07:20 History and Physical has been reviewed, including an updated exam of the patient. There are NO changes in the patient's condition. Risks, benefits, and alternatives have been discussed and questions answered. Patient agrees to proceed with procedure.
[2024-12-11 07:48] LABS: BEDSIDEPREGUCG Negative (Negative)
--- NOTE | 2024-12-11 08:12 | WPDANESEPPF ---
Anes - Initial Pre Proc Eval Procedure: Operation Date: 12/11/24 08:45 Proposed Procedures p Hysteroscopy with Intrauterine Device Removal, - Christiano Mcmahan MD s Bilateral Laparoscopic Salpingectomy - Christiano Mcmahan MD Date/Time: 12/11/24 08:12 Surgeon: Christiano Mcmahan MD Pre Op Diagnosis: desires sterilization Patient Data Age: 49 Gender: F Height: 1.55 m Weight: 73.3 kg Last Vital Signs Temp 37.1 C 12/11/24 07:10 Pulse 85 12/11/24 07:10 Resp 16 12/11/24 07:10 BP 143/88 H 12/11/24 07:10 Pulse Ox 100 12/11/24 07:10 O2 Del Method Room Air 12/11/24 07:10 Allergies Allergy/AdvReac Type Severity Reaction Status Date / Time No Known Allergies Allergy Verified 12/11/24 07:47 Home Medications ?Medication ?Instructions ?Recorded ?Confirmed ?Type clonazepam 1 mg tablet 1 mg PO TID 07/04/22 12/11/24 History dextroamphetamine-amphetamine 20 20 mg PO DAILY 08/27/24 11/21/24 History mg tablet (Adderall) hydrochlorothiazide 12.5 mg tablet See Rx Instructions .Route 08/27/24 11/21/24 Rx .COMPLEX #90 tabs Laboratory Tests 12/11/24 06:45 POC Urine HCG, Qual Negative (Negative) Patient hx anesthesia problems: none Family hx anesthesia problems: none Results Review: All pre-operative results and documents have been reviewed as part of the pre-operative evaluation. COUNTS INCLUDE 234 BEDS AT THE [facility] Past Medical History Medical History Remove/insert IUD Encounter for screening examination for sexually transmitted disease Screening mammogram, encounter for Vaginal discharge Screening for breast cancer Vaginal delivery 04/11/96 05/25/13 Encounter for IUD removal 10/14/14 Mirena removal Encounter for IUD insertion 05/14/13 Mirena insertion 11/11/14 Paragard insertion ADHD Surgical History Surgical History History of hernia repair History of endometrial ablation Family History Family History Mother Diabetes mellitus Alcohol abuse Depression Thyroid disease Father Diabetes mellitus Hypertension Grandparent Diabetes mellitus maternal grandmother Breast cancer maternal grandmother Social History Social History Social History: caffeine Smoking packs per day: 1 Smoking cigarettes per day: 20.0 Years smoked: 26 Smoking pack-years: 26.00 Smoking status: Current every day smoker Tobacco type: cigarettes Second hand tobacco smoke exposure: No Alcohol intake: never Substance use: never Substance use type: does not use Do You Feel Safe in your Home?: Yes Lack of Transportation: No Lack of Food: Never True Current Housing: I Have Housing Concerned About Future Housing: No Difficulty Paying Gas/Electric Bills: No Difficulty Paying for Meds: No Currently Unemployed: Decline to Answer Education: Trade/Vocational Certificate Difficulty w/ Childcare or Family Care: No Living arrangements: with family Additional living arrangements comments: child Occupation/Education: unemployed Gender identity (if verbalized by the patient): Female Sexual Orientation (if Verbalized by the Patient): Straight or Heterosexual Agree to blood products: Yes Anes - Eval Final PreProcedure Day of Procedure 12/11/24 08:12 Patient weight: obese Heart: regular rate and rhythm Lungs: decreased breath sounds Airway: Mallampati scale class II Neurological: alert and oriented Last oral intake: >/= 8 hours ASA classification: III Emergent: no Anesthetic plan: proceed Anesthesia type and monitoring: general ETT and standard monitoring Results Review: All pre-operative results and documents have been reviewed as part of the pre-operative evaluation. Informed Consent: The patient's anesthetic plan and its attendant risks and benefits were discussed with the patient/family/POA. Questions were solicited and answers provided to the satisfaction of the patient/family/POA.
--- NOTE | 2024-12-11 09:03 | S_PTH ---
PATIENT: Lakshmi Lai LOC: [facility] U#:[id number] AGE/SX: 49/F ROOM: RE12/11/[address]: Christiano Mcmahan MD : 1975 BED: DIS: 12/11/2024 SPEC #: [id number] RECD: 12/11/24 10:59 STATUS: MARICHUY REQ #: [id number] MO: 12/11/24 09:[address]: Christiano Mcmahan DEPT: [facility] [place] Surgical RECD BY: Mariya Mcrae ENTERED: 12/11/24 10:59 SP TYPE: Surgical OTHR DR: Wilma Begum DO Tissues: A - Fallopian Tube Bilateral Procedures: Gross and Microscopic Level 2 Hematoxylin and Eosin Stain
--- NOTE | 2024-12-11 09:27 | P.OP_ITS ---
Procedure Note - Detailed Date of Procedure 12/11/24 Pre-op Diagnosis desires sterilization Post-op Diagnosis Same Procedure Performed 1. Hysteroscopy 2. Laparoscopic bilateral salpingectomy Surgeon Christiano Mcmahan MD Anesthesia General Findings 1. Hysteroscopic exam revealed no IUD fragment 2. Laparoscopic exam revealed no IUD fragment 3. Bilateral tubes and ovaries without abnormality 4. Anterior uterine fibroid Description of Procedure Patient prepped draped usual manner for this procedure. Initial procedure was performed laparoscopically. Trocars were placed under direct visualization and findings were noted as above. Specifically no evidence of IUD fragment in the pelvis lower abdomen or evidence embedded in the uterus. Enlarged anterior/right broad ligament fibroid was noted. Bilaterally the mesial salpinx were cauterized and cut tubes removed without difficulty. Again it should be noted that the revaluation of all the anatomy revealed no evidence of IUD fragment. Gas was allowed to escape, trocars removed, incisions approximated us ing 4 Monocryl. Hysteroscopic exam was then performed with again no obvious IUD for noted. Aggressive curetting throughout, while also visualizing laparoscopically, and again no evidence after curetting of IUD fragment. At this point the procedure was considered terminated and the patient was sent to recovery room in stable condition. Estimated Blood Loss 10 Drains No Packing No Pathology Yes Complications No immediate complications Condition Stable Disposition PACU [facility] Billing Surgery - Charge Forward: Surgery Billing
[2024-12-11] MEDS: fentaNYL CITRATE INJ (*CRX) 100 MCG/2 ML VIAL 25 MCG IV PUSH (09:54)
[2024-12-11] MEDS: oxyCODONE HCL (*CRX) 5 MG TAB IR PO (10:33)
== END 2024-12-11 11:17 | disposition home or self-care (01) ==
PROVIDERS: PCP Family Medicine; Visit Provider Obstetrics & Gynecology
PROC: 0U5B8ZZ Destruction of Endometrium, Via Natural or Artificial Opening Endoscopic (ICD-10-PCS; CPT 58563; principal; 2024-12-11 08:45)
PROC: (CPT 49320; 2024-12-11 08:45)
DX: Z30.2 Encounter for sterilization (principal); D25.9 Leiomyoma of uterus, unspecified; N83.8 Other noninflammatory disorders of ovary, fallopian tube and broad ligament; T83.32XA Displacement of intrauterine contraceptive device, initial encounter; Y84.8 Other medical procedures as the cause of abnormal reaction of the patient, or of later complication, without mention of misadventure at the time of the procedure; F17.210 Nicotine dependence, cigarettes, uncomplicated; E66.9 Obesity, unspecified; Z68.30 Body mass index [BMI] 30.0-30.9, adult
CPT/HCPCS: 58661; 58555; 88302; A9270; J1100; J1885; J2003; J2250; J2405; J2704; J3010; J7120

== ENCOUNTER 2025-05-07 07:03 | Emergency (ER) | payer OTHER, SELFPAY ==
--- NOTE | ~2025-05-07 | CT_ITS ---
EXAMINATION: CT abdomen pelvis w con DATE: 05/07/2025 09:19 INDICATION: Abdomen pain. Ileus versus obstruction. TECHNIQUE: Computed tomography (CT) of the abdomen and pelvis was performed with 100 cc Omnipaque 350 intravenous contrast. The dose-length product was 380.59 mGy-cm. Automated exposure control and iterative reconstruction technique were employed. COMPARISON: CT dated 12/24/2016 FINDINGS: Lung bases unremarkable. Heart size normal. No significant pleural or pericardial effusion. Fatty infiltration of the liver. Gallbladder is present. The spleen, pancreas, adrenal glands and kidneys are unremarkable. Nonobstructive bowel gas pattern. There is focal thickening of the colon at the junction of the descending and sigmoid colon with mild surrounding inflammation and diverticula, consistent with acute diverticulitis. No evidence for perforation or abscess. Large exophytic 7 cm uterine fibroid located anteriorly. There is mass effect on the bladder. No lymphadenopathy. IMPRESSION: 1. Acute uncomplicated diverticulitis of the colon at the junction of the descending and sigmoid colon. 2: Large uterine fibroid measuring 7 cm located anterior aspect of the uterus. Reviewed, dictated and finalized at location O. SETTER IMPRESSION: 1. Acute uncomplicated diverticulitis of the colon at the junction of the desce nding and sigmoid colon. 2: Large uterine fibroid measuring 7 cm located anterior aspect of the uterus.
[2025-05-07 07:05] VITALS: BP 179/128; PULSE 113; RESP 18; TEMP 36.6; O2SAT 98
[2025-05-07 08:19] VITALS: BP 196/124; PULSE 105; RESP 12; TEMP 37; O2SAT 98
[2025-05-07 08:49] LABS: Hematocrit 45.8 % (37.0-47.0); Hemoglobin 15.9 g/dL (12.0-15.0); Immature Granulocyte Percent A 0.6 % (0-0.5); Lymphocytes Absolute Auto 1.91 K/mm3 (0.9-3.2); Mean Corpuscular HGB Conc 34.7 g/dl (32-36); Mean Corpuscular Hemoglobin 32.3 pg (26-34); Mean Corpuscular Volume 93.1 fl (80-100); Nucleated Red Blood Cells Absolute Auto 0.000 K/mm3 (0.0-0.012); Nucleated Red Blood Cells Perc 0.0 % (0.0-0.2); Platelet Count Result 277 k/mm3 (150-375); Red Blood Count 4.92 M/mm3 (4.2-5.4); White Blood Count 10.1 K/mm3 (4.5-10.0)
[2025-05-07] MEDS: SODIUM CHLORIDE 0.9% IV 1,000 ML 999 ML IV CONT (08:50)
[2025-05-07 08:51] VITALS: BP 167/122; PULSE 102; RESP 13; O2SAT 99
[2025-05-07 09:01] LABS: Alanine Aminotransferase 21 U/L (6-35); Albumin Level 4.7 g/dL (3.5-5.1); Alkaline Phosphatase 77 U/L (38-126); Anion Gap 10 mmol/L (4-12); Aspartate Amino Transferase 29 U/L (14-36); Bilirubin,Total 0.8 mg/dL (0.2-1.3); Blood Urea Nitrogen 11 mg/dL (7-17); Calcium 9.8 mg/dL (8.4-10.2); Carbon Dioxide 30 mmol/L (22-30); Chloride 100 mmol/L (98-107); Estimated CRCL calculation 61 ml/min; Estimated Glomerular Filt Rate > 60; Glucose 94 mg/dL (65-110); Lipase 53 U/L (23-300); Potassium 3.5 mmol/L (3.4-5.0); Sodium 140 mmol/L (137-145); Total Protein 8.5 g/dL (6.3-8.2)
[2025-05-07 09:42] VITALS: BP 180/109; PULSE 103; RESP 17; O2SAT 98
--- NOTE | 2025-05-07 10:25 | ED.ABDPAIN ---
HPI - Abdominal Pain General Chief Complaint: Abdominal Pain Stated Complaint: constipation-last BM 15 days ago Time Seen by Provider: 05/07/25 08:02 History of Present Illness HPI narrative: Patient is a 50-year-old female who presents ER with concerns for constipation. She has not had a bowel movement in 15 days. She is unsure if she is passing gas. No vomiting. She has some diffuse abdominal cramping. No diarrhea. No history of bowel obstruction the past. Denies previous abdominal surgeries. She has had poor appetite since starting Ozempic which is correlating with when she had her last bowel movement. She takes 0.25 mg injections. She has tried enema x2 without improvement. Related Data Home Medications ?Medication ?Instructions ?Recorded ?Confirmed ?Last Taken ?Type clonazepam 1 mg tablet 1 mg PO TID 07/04/22 12/17/24 12/11/24 History dextroamphetamine-amphetamine 20 20 mg PO DAILY 08/27/24 12/17/24 Unknown History mg tablet (Adderall) Allergies Allergy/AdvReac Type Severity Reaction Status Date / Time No Known Allergies Allergy Verified 05/07/25 08:22 Review of Systems Review of Systems: All systems reviewed & are unremarkable except as noted in HPI and below Constitutional: Constitutional: Reports no additional constitutional complaints Cardiovascular: Cardiovascular: Reports no additional cardiovascular complaints Respiratory: Respiratory: Reports no additional respiratory complaints Gastrointestinal: Gastrointestinal: Reports no additional gastrointestinal complaints Musculoskeletal: Musculoskeletal: Reports no additional musculoskeletal complaints [facility] Past Medical History Medical History Remove/insert IUD Encounter for screening examination for sexually transmitted disease Screening mammogram, encounter for Vaginal discharge Screening for breast cancer Vaginal delivery 04/11/96 05/25/13 Encounter for IUD removal 10/14/14 Mirena removal Encounter for IUD insertion 05/14/13 Mirena insertion 11/11/14 Paragard insertion ADHD Surgical History Surgical History (Updated 12/17/24 @ 11:54 by TYLOR Soto) H/O bilateral salpingectomy (12/11/24) Hysteroscopy / Laparoscopic bilateral salpingectomy History of hernia repair History of endometrial ablation Family History Family History Mother Diabetes mellitus Alcohol abuse Depression Thyroid disease Father Diabetes mellitus Hypertension Grandparent Diabetes mellitus maternal grandmother Breast cancer maternal grandmother Social History Social History (Updated 12/17/24 @ 13:45 by Dee Dee Corrigan [facility]) Social History: caffeine Smoking packs per day: 1 Smoking cigarettes per day: 20.0 Years smoked: 26 Smoking pack-years: 26.00 Smoking status: Current every day smoker Tobacco type: cigarettes Second hand tobacco smoke exposure: No Alcohol intake: never Substance use: never Substance use type: does not use Lack of Transportation: No Lack of Food: Never True Current Housing: Decline to Answer Concerned About Future Housing: Decline to Answer Difficulty Paying Gas/Electric Bills: Decline to Answer Difficulty Paying for Meds: Decline to Answer Currently Unemployed: Decline to Answer Education: Decline to Answer Difficulty w/ Childcare or Family Care: Decline to Answer Living arrangements: with family Additional living arrangements comments: child Occupation/Education: unemployed Gender identity (if verbalized by the patient): Female Sexual Orientation (if Verbalized by the Patient): Straight or Heterosexual Agree to blood products: Yes Exam Narrative: GENERAL: Well-appearing, well-nourished, and in no acute distress. HEAD: Normocephalic, atraumatic. ENT: Mucous membranes moist. NECK: Supple. CHEST: Clear to auscultation. No respiratory distress. HEART: Tachycardic and regular. Normal peripheral pulses. ABDOMEN: Soft, mild tenderness left lower quadrant without guarding, nondistended, normal active bowel sounds. EXTREMITIES: Normal range of motion. No edema. SKIN: Warm, dry, no rash. NEURO: Alert and oriented x3. PSYCH: Normal mood and affect. Course Course Emergency Course: Patient resting comfortably. She is passing gas without issue here in the ER. Discussed lab and imaging results. Discharge home with MiraLax as well as oral antibiotics. Recommend holding a dose of the is an pick. Patient verbalized understanding. Vital Signs Vital signs: Vital Signs Temperature 98 F 05/07/25 07:05 Pulse Rate 113 H 05/07/25 07:05 Respiratory Rate 18 05/07/25 07:05 Blood Pressure 179/128 H 05/07/25 07:05 Pulse Oximetry 98 05/07/25 07:05 Oxygen Delivery Room Air 05/07/25 07:05 Temperature 98.6 F 05/07/25 08:19 Pulse Rate 103 H 05/07/25 09:42 Respiratory Rate 17 05/07/25 09:42 Blood Pressure 180/109 H 05/07/25 09:42 Pulse Oximetry 98 05/07/25 09:42 Oxygen Delivery Room Air 05/07/25 08:19 [facility] Differential Diagnosis Differential Diagnosis: Ileus, constipation, bowel obstruction, diverticulitis, UTI Lab Data [facility] Lab Attestation statement: I personally reviewed the patient's lab results. 05/07/25 08:44 05/07/25 08:44 Labs: Lab Results 05/07/25 Range/Units 08:44 WBC 10.1 H (4.5-10.0) K/mm3 RBC 4.92 (4.2-5.4) M/mm3 Hgb 15.9 H (12.0-15.0) g/dL Hct 45.8 (37.0-47.0) % MCV 93.1 (80-100) fl MCH 32.3 (26-34) pg MCHC 34.7 (32-36) g/dl RDW 12.6 (11.5-14.5) % Plt Count 277 (150-375) k/mm3 MPV 10.5 H (7.4-10.4) fl Immature Gran % (Auto) 0.6 H (0-0.5) % Neut % (Auto) 70.4 (45.5-73.1) % Lymph % (Auto) 18.9 (18.3-44.2) % [place] % (Auto) 6.8 (2.6-8.5) % Eos % (Auto) 2.8 (0-4.4) % Baso % (Auto) 0.5 (0.2-1.2) % Lymph # (Auto) 1.91 (0.9-3.2) K/mm3 [place] # (Auto) 0.7 H (0.1-0.6) K/mm3 Eos # (Auto) 0.3 (0-0.3) K/mm3 Baso # (Auto) 0.1 (0.0-0.1) K/mm3 Abs Immat Gran (auto) 0.06 H (0.00-0.031) K/mm3 Absolute Neuts (auto) 7.1 H (1.3-6.7) K/mm3 Absolute Nucleated RBC 0.000 (0.0-0.012) K/mm3 Nucleated RBC % 0.0 (0.0-0.2) % Sodium 140 (137-145) mmol/L Potassium 3.5 (3.4-5.0) mmol/L Chloride 100 (98-107) mmol/L Carbon Dioxide 30 (22-30) mmol/L Anion Gap 10 (4-12) mmol/L BUN 11 (7-17) mg/dL Creatinine 0.92 (0.7-1.0) mg/dL Estim Creat Clear Calc 61 ml/min Estimated GFR > 60 (59 - ) Glucose 94 (65-110) mg/dL Lactic Acid 0.9 (0.7-2.0) mmol/L Calcium 9.8 (8.4-10.2) mg/dL Total Bilirubin 0.8 (0.2-1.3) mg/dL AST 29 (14-36) U/L ALT 21 (6-35) U/L Alkaline Phosphatase 77 (38-126) U/L Total Protein 8.5 H (6.3-8.2) g/dL Albumin 4.7 (3.5-5.1) g/dL Lipase 53 (23-300) U/L Imaging Data Attestation: I personally reviewed and interpreted this imaging study as follows: Radiologist's impression: ITS Impressions Abdomen/Pelvis CT 05/07/25 09:24 IMPRESSION: 1. Acute uncomplicated diverticulitis of the colon at the junction of the descending and sigmoid colon. 2: Large uterine fibroid measuring 7 cm located anterior aspect of the uterus. Discharge Plan Discharge Clinical Impression: Constipation, Diverticulitis Patient Disposition: Home Condition: Stable Instructions: Antibiotic Form, Diverticulitis (ED), Constipation (ED) Additional Instructions: Return to the emergency department if you develop severe abdominal pain, severe nausea and vomiting to the point where you are unable to keep down fluids, if you develop chest pain or difficulty breathing, blood in your stool, dizziness or fainting, or if you develop any other new or concerning symptoms as these could be signs of more serious medical illness. Try to stay well hydrated. Patient Language: Kiswahili Prescriptions: New ciprofloxacin HCl 500 mg tablet 500 mg PO Q12H Qty: 14 0RF metronidazole 500 mg tablet 500 mg PO Q8H Qty: 21 0RF polyethylene glycol 3350 [Miralax] 17 gram/dose powder 17 g PO BID Qty: 119 0RF No Action dextroamphetamine-amphetamine [Adderall] 20 mg tablet 20 mg PO DAILY metronidazole 500 mg tablet 500 mg PO BID Qty: 14 0RF clonazepam 1 mg tablet 1 mg PO TID oxycodone 5 mg Tablet 5 mg PO Q4-6H Qty: 20 0RF ibuprofen 800 mg tablet 800 mg PO TID Qty: 20 0RF labetalol 200 mg tablet 200 mg PO Q12H Qty: 60 0RF naproxen 500 mg tablet 500 mg PO BID PRN (Reason: pain) Qty: 60 0RF hydrochlorothiazide 12.5 mg tablet See Rx Instructions .ROUTE .COMPLEX Qty: 90 0RF Dose Instruction: TAKE 1 TABLET BY MOUTH DAILY Rx Instructions: TAKE 1 TABLET BY MOUTH DAILY Follow-up/Referrals: Sundeep Cordero MD [Physician, Family Practice] - 1 Week PHYSICIAN,DATA MANAGEMENT CONSULTANT [Primary Care Provider, Internal Medicine]
[2025-05-07 10:51] VITALS: BP 180/119; PULSE 111; RESP 17; TEMP 36.8; O2SAT 99
== END 2025-05-07 10:53 | disposition home or self-care (01) ==
PROVIDERS: Emergency Provider Emergency Medicine
DX: K59.00 Constipation, unspecified (principal); K57.32 Diverticulitis of large intestine without perforation or abscess without bleeding; F17.210 Nicotine dependence, cigarettes, uncomplicated; F90.9 Attention-deficit hyperactivity disorder, unspecified type
CPT/HCPCS: 36415; 74177; 80053; 83605; 83690; 85025; 96360; 99284; J7030; Q9967